=== PATIENT | female | born 1945 ===

== ENCOUNTER 2018-09-18 02:44 | Inpatient (IN) | payer MEDICARE ==
--- NOTE | 2018-09-18 02:55 | C.PDOC ---
History Of Present Illness Patient with PMHx of AFiv, taking xarelto, presents to the ED c/o fever, diffuse generalized aches, nausea since Sunday. Patient also c/o some chest pain yesterday, however reports no chest pain today. Patient denies fever, chills, h eadache, vomit, diarrhea, rash, recent travel, sick contacts. Time Seen by Provider: 09/18/18 02:54 History Per: Patient, Family History/Exam Limitations: no limitations Onset/Duration Of Symptoms: Days (4) Current Symptoms Are (Timing): Still Present Suicide/Self Injury Attempted (Context): None Modifying Factor(s): None Severity: Moderate Pain Scale Rating Of: 4 Associated Symptoms: denies: Depression, Suicidal Thoughts, Suicidal Plan Recent travel outside of the [place]: No Additional History Per: Patient Past Medical History Reviewed: Historical Data, Nursing Documentation, Vital Signs - Medical History PMH: Atrial Fibrillation, Cardia Arrhythmia, Diabetes, HTN Surgical History: Coronary Stent, Endoscopy Family History: States: Unknown Family Hx - Social History Hx Tobacco Use: No Hx Alcohol Use: No Hx Substance Use: No - Immunization History Hx Influenza Vaccination: Yes Hx Pneumococcal Vaccination: Yes Review Of Systems Constitutional: Positive for: Fever, Weakness, Malaise Eyes: Negative for: Vision Change ENT: Negative for: Nose Discharge, Nose Congestion Cardiovascular: Negative for: Chest Pain, Palpitations Respiratory: Negative for: Cough, Shortness of Breath Gastrointestinal: Positive for: Nausea. Negative for: Vomiting, Abdominal Pain Genitourinary: Positive for: Dysuria (?) Musculoskeletal: Negative for: Back Pain Skin: Negative for: Rash Neurological: Negative for: Weakness, Numbness, Headache Psych: Negative for: Anxiety Physical Exam - Physical Exam Appears: Non-toxic, In Acute Distress Skin: Warm, Dry Head: Normacephalic Eye(s): bilateral: Normal Inspection, Other (conjuctiva midly jaundiced) Oral Mucosa: Dry Neck: Supple Chest: Symmetrical Cardiovascular: Rhythm Irregular (irregularly irregular) Respiratory: No Rales, Rhonchi (scattered ), No Wheezing Gastrointestinal/Abdominal: Soft, No Tenderness, No Guarding, No Rebound Back: No CVA Tenderness Extremity: No Tenderness Extremity: Bilateral: Atraumatic, Normal Color And Temperature, Normal ROM Pulses: Left Dorsalis Pedis: Normal, Right Dorsalis Pedis: Normal Neurological/Psych: Oriented x3, Normal Speech, Normal Cognition Gait: Unable To Assess ED Course And Treatment - Laboratory Results Result Diagrams: 09/18/18 03:35 09/18/18 03:35 ECG: Interpreted By Me, Viewed By Me ECG Rhythm: Atrial Fibrillation (116), ST/T Changes (inf lat ischemic changes) O2 Sat by Pulse Oximetry: 91 Pulse Ox Interpretation: Abnormal - Radiology CXR: Interpreted by Me, Viewed By Me CXR Interpretation: No: Infiltrates, Fracture, Pnemothorax Progress Note: Plan: - Labs. - VBG. - CXR. - IV fluids. - Tylenol 975 mg PO. - Zofran 4 mg IVP. - Blood culture. - Urine culture. - UA. 4:38 AM pt feels better Disposition Discussed With : Kye Umana Comment: accepted the pt on his service and took over the care at 4:35 AM Doctor Will See Patient In The: Hospital Counseled Patient/Family Regarding: Studies Performed, Diagnosis - Disposition Disposition: HOSPITALIZED Disposition Time: 02:55 Condition: GUARDED - POA Present On Arrival: Poor Glycemic Control - Clinical Impression Clinical Impression: Fever, Urinary tract infection, Chest pain, A-fib - Scribe Statement The provider has reviewed the documentation as recorded by the Scribe Damion Nicholas All medical record entries made by the Scribe were at my direction and personally dictated by me. I have reviewed the chart and agree that the record accurately reflects my personal performance of the history, physical exam, medical decision making, and the department course for this patient. I have also personally directed, reviewed, and agree with the discharge instructions and disposition. Decision To Admit - Pt Status Changed To: Hospital Disposition Of: Inpatient - Admit Certification Admit to Inpatient:: After my assessment, the patient will require hospitalization for at least two midnights. This is because of the severity of symptoms shown, intensity of services needed, and/or the medical risk in this patient being treated as an outpatient. - InPatient: Physician Admission Certification: I certify that this patient requires 2 or more midnights of care for the following reason:: After my assessment, the patient will require hospitalization for at least two midnights. This is because of the severity of symptoms shown, intensity of services needed, and/or the medical risk in this patient being treated as an outpatient. - . Bed Request Type: Telemetry Admitting Physician: Kye Umana Patient Diagnosis: Fever, Urinary tract infection, Chest pain
[2018-09-18] MEDS ORDERED: Sodium Chloride 0.9% 1,000 ML IV ONE ×2 (03:16→04:08)
[2018-09-18 03:34] LABS: VENOUS BLOOD GAS BASE EXCESS -2.9 mmol/L (0.0-2.0); VENOUS BLOOD GAS PCO2 38 mmHg (40-60); VENOUS BLOOD GAS PO2 22 mm/Hg (30-55); VENOUS BLOOD PH 7.37 (7.32-7.43)
[2018-09-18] MEDS ORDERED: Sodium Chloride 0.9% 1,000 ML ONE (03:34)
[2018-09-18] MEDS ORDERED: Piperacillin/Tazobact 3.375 gm 100 ML IVPB STA (03:35)
[2018-09-18 03:38] LABS: BASO % 0.2 % (0.0-2.0); EOS % 0.2 % (0.0-4.0); HEMOGLOBIN 13.5 g/dL (11.0-16.0); LYMPH # 0.2 K/uL (1.0-4.3); MEAN CELL VOLUME 92.3 fL (81.0-99.0); MEAN CORPUSCULAR HEMOGLOBIN 32.2 pg (27.0-31.0); MEAN CORPUSCULAR HGB CONC 34.9 g/dL (33.0-37.0); MEAN PLATELET VOLUME 8.9 fL (7.2-11.7); MONO # 0.1 K/uL (0.0-0.8); MONO % 0.6 % (0.0-10.0); NEUT # 10.5 K/uL (1.8-7.0); PLATELET COUNT 217 K/uL (130-400); RED CELL DISTRIBUTION WIDTH 13.4 % (11.5-14.5); WHITE BLOOD COUNT 10.8 K/uL (4.8-10.8)
[2018-09-18 03:46] LABS: INR 1.4
[2018-09-18 03:59] LABS: ALB/GLOB RATIO 1.5 (1.0-2.1); ALT/SGPT 30 U/L (9-52); AST/SGOT 38 U/L (14-36); BLOOD UREA NITROGEN 20 mg/dL (7-17); CALCIUM 9.3 mg/dl (8.6-10.4); GFR NON-AFRICAN AMERICAN > 60
[2018-09-18] MEDS ORDERED: Piperacillin/Tazobact 3.375 gm 100 ML IVPB ONE (04:07)
[2018-09-18 04:16] LABS: BANDS 7 % (0-2); LYMPHOCYTE 2 % (20-40); NEUTROPHIL 88 % (50-75); PLATELET ESTIMATE NORMAL (NORMAL); REACTIVE LYMPHOCYTES 3 % (0-0); TOTAL CELLS COUNTED 100
[2018-09-18] MEDS ORDERED: Sodium Chloride 0.9% 1,000 ML IV SCH (05:15)
[2018-09-18] MEDS: (Novolin R) Insulin Human Regular 100 units/ml vial SC SCH ×4 (07:42→21:33)
--- NOTE | 2018-09-18 09:09 | RAD ---
Date of service: 09/18/2018 HISTORY: Sepsis Patient COMPARISON: No prior. TECHNIQUE: 1 view obtained. FINDINGS: LUNGS: No active pulmonary disease. PLEURA: No significant pleural effusion identified, no pneumothorax apparent. CARDIOVASCULAR: No aortic atherosclerotic calcification present. Normal cardiac size. No pulmonary vascular congestion. OSSEOUS STRUCTURES: No significant abnormalities. VISUALIZED UPPER ABDOMEN: Normal. OTHER FINDINGS: None. IMPRESSION: No acute cardiopulmonary disease appreciated.
[2018-09-18] MEDS: Magnesium Sulfate 1 gm in D5W 1 GM/100 ML BAG IVPB SCH ×4 (09:39→14:35)
[2018-09-18] MEDS: Metoprolol Succinate 50 mg XL Tab PO SCH (09:40)
--- NOTE | 2018-09-18 11:22 | US ---
Abdominal ultrasound HISTORY: Abdominal pain. COMPARISON: CT scan dated 05/21/2014 TECHNIQUE: Real-time sonography was performed through the abdomen. FINDINGS: LIVER: 10.8 centimeters in length. Normal echogenicity. GALLBLADDER: No calculi or sludge. Normal wall thickness of 2.4 millimeters. No gross wall edema. Negative sonographic Irwin's sign. Common bile duct measures 4.8 millimeters, within normal limits. Limited visualization of the pancreas. Spleen measures 9.9 centimeters in length, within normal limits. Visualized aorta and IVC are preserved. Atherosclerotic calcification and plaque seen within the aorta. RIGHT KIDNEY: 10.6 x 4.0 x 4.7 centimeters. No calculi or hydronephrosis. LEFT KIDNEY: 10.0 x 5.5 x 5.3 centimeters. Upper to midpole hypoechoic left renal lesion with some questionable increased peripheral echogenicity and or internal echoes in the cyst/cystic lesion measuring 6.9 x 4.7 x 5.6 centimeters. Interval follow-up and/or correlation with multiphasic contrast enhanced CT or may be helpful if clinically indicated to better evaluate this cystic lesion. No gross calculi or hydronephrosis. IMPRESSION: Upper to midpole hypoechoic left renal lesion with some questionable increased peripheral echogenicity and or internal echoes in the cyst/cystic lesion measuring 6.9 x 4.7 x 5.6 centimeters. Interval follow-up and/or correlation with multiphasic contrast enhanced CT or MRI may be helpful if clinically indicated to better evaluate this cystic lesion. Limited visualization of the pancreas.
[2018-09-18] MEDS ORDERED: Digoxin 500 mcg/2ml (0.5 mg/2ml) Inj IVP ONE (12:00)
[2018-09-18 14:29] LABS: SQUAMOUS EPITHIAL < 1 /hpf (0-5); URINE BILIRUBIN NEGATIVE (NEGATIVE); URINE BLOOD NEGATIVE (NEGATIVE); URINE CLARITY Clear (Clear); URINE COLOR Yellow (YELLOW); URINE GLUCOSE (UA) NORMAL (Normal); URINE LEUKOCYTE ESTERASE NEG Leu/uL (Negative); URINE PROTEIN NEGATIVE (NEGATIVE); URINE UROBILINOGEN NORMAL mg/dL (0.2-1.0)
--- NOTE | 2018-09-18 17:27 | CP.PCM.CON ---
History of Present Illness - History of Present Illness History of Present Illness: INFECTIOUS DISEASE CONSULTATION EDINSON SALAZAR MD, FACP 09/18/2018 6T [id number] CHART REVIEWED PT EXAMINED\ CASE DISCUSSED WITH STAFF 73 YR OLD FEMALE ADMITTED WITH TEMPS AND NOT FEELING WELL. WAS RECENTLY RX FOR A UTI(?) AN ID CONSULTATION WAS REQUESTED 2ND TEMPS AND SOURCE TO BE ELUCIDATED. History Of Present Illness Patient with PMHx of AFiv, taking xarelto, presents to the ED c/o fever, diffuse generalized aches, nausea since Sunday. Patient also c/o some chest pain yesterday, however reports no chest pain today. Patient denies fever, chills, headache, vomit, diarrhea, rash, recent travel, sick contacts. History Per: Patient, Family History/Exam Limitations: no limitations Onset/Duration Of Symptoms: Days (4) Current Symptoms Are (Timing): Still Present Suicide/Self Injury Attempted (Context): None Modifying Factor(s): None Severity: Moderate Pain Scale Rating Of: 4 Associated Symptoms: denies: Depression, Suicidal Thoughts, Suicidal Plan Recent travel outside of the [place]: No Additional History Per: Patient Past Medical History Reviewed: Historical Data, Nursing Documentation, Vital Signs - Medical History PMH: Atrial Fibrillation, Cardia Arrhythmia, Diabetes, HTN Surgical History: Coronary Stent, Endoscopy Family History: States: Unknown Family Hx - Social History Hx Tobacco Use: No Hx Alcohol Use: No Hx Substance Use: No - Immunization History Hx Influenza Vaccination: Yes Hx Pneumococcal Vaccination: Yes Review Of Systems Constitutional: Positive for: Fever, Weakness, Malaise Eyes: Negative for: Vision Change ENT: Negative for: Nose Discharge, Nose Congestion Cardiovascular: Negative for: Chest Pain, Palpitations Respiratory: Negative for: Cough, Shortness of Breath Gastrointestinal: Positive for: Nausea. Negative for: Vomiting, Abdominal Pain Genitourinary: Positive for: Dysuria (?) Musculoskeletal: Negative for: Back Pain Skin: Negative for: Rash Neurological: Negative for: Weakness, Numbness, Headache Psych: Negative for: Anxiety Physical Exam - Physical Exam Appears: Non-toxic, In Acute Distress Skin: Warm, Dry Head: Normacephalic Eye(s): bilateral: Normal Inspection, Other (conjuctiva midly jaundiced) Oral Mucosa: Dry Neck: Supple Chest: Symmetrical Cardiovascular: Rhythm Irregular (irregularly irregular) Respiratory: No Rales, Rhonchi (scattered ), No Wheezing Gastrointestinal/Abdominal: Soft, No Tenderness, No Guarding, No Rebound Back: No CVA Tenderness Extremity: No Tenderness Extremity: Bilateral: Atraumatic, Normal Color And Temperature, Normal ROM Pulses: Left Dorsalis Pedis: Normal, Right Dorsalis Pedis: Normal Neurological/Psych: Oriented x3, Normal Speech, Normal Cognition Gait: Unable To Assess ED Course And Treatment - ECG Rhythm: Atrial Fibrillation (116), ST/T Changes (inf lat ischemic changes) O2 Sat by Pulse Oximetry: 91 Pulse Ox Interpretation: Abnormal - Radiology CXR: Interpreted by Me, Viewed By Me CXR Interpretation: No: Infiltrates, Fracture, Pnemothorax Progress Note: Plan: - Labs. - VBG. - CXR. - IV fluids. - Tylenol 975 mg PO. - Zofran 4 mg IVP. - Blood culture. - Urine culture. - UA. 4:38 AM pt feels better Disposition Discussed With DrFarhan: Kye CHISHOLM Present On Arrival: Poor Glycemic Control - Clinical Impression Clinical Impression: Fever, Urinary tract infection, Chest pain, A-fib Past Patient History - Infectious Disease Hx of Infectious Diseases: None - Past Social History Smoking Status: Never Smoked - CARDIAC Hx Cardiac Disorders: Yes Hx Hypertension: Yes - PULMONARY Hx Respiratory Disorders: No - NEUROLOGICAL Hx Neurological Disorder: No - HEENT Hx HEENT Problems: No - RENAL Hx Chronic Kidney Disease: No - ENDOCRINE/METABOLIC Hx Diabetes Mellitus Type 2: Yes - HEMATOLOGICAL/ONCOLOGICAL Hx Blood Disorders: No - INTEGUMENTARY Hx Dermatological Problems: No - MUSCULOSKELETAL/RHEUMATOLOGICAL Hx Musculoskeletal Disorders: No Hx Falls: No - GASTROINTESTINAL Hx Gastrointestinal Disorders: No - GENITOURINARY/GYNECOLOGICAL Hx Genitourinary Disorders: No - PSYCHIATRIC Hx Psychophysiologic Disorder: No Hx Substance Use: No - SURGICAL HISTORY Hx Surgeries: Yes Hx Coronary Stent: Yes - ANESTHESIA Hx Anesthesia: Yes Hx Anesthesia Reactions: No Hx Malignant Hyperthermia: No Has any member of the family had a problem w/ anesthesia?: No Meds Allergies/Adverse Reactions: Allergies Allergy/AdvReac Type Severity Reaction Status Date / Time No Known Allergies Allergy Verified 09/18/18 03:00 - Medications Medications: Current Medications Acetaminophen (Tylenol 325mg Tab) 975 mg PO ONCE PRN PRN Reason: Fever >100.4 F Last Admin: 09/18/18 03:36 Dose: 975 mg Acetaminophen (Tylenol 325mg Tab) 650 mg PO Q6 PRN PRN Reason: Pain, severe (8-10) Digoxin (Lanoxin) 0.25 mg IVP DAILY [facility] Stop: 09/22/18 10:01 Sodium Chloride (Sodium Chloride 0.9%) 1,000 mls @ 50 mls/hr IV .Q20H [facility] Piperacillin Sod/Tazobactam (Sod 3.375 gm/ Sodium Chloride) 100 mls @ 200 mls/hr IVPB Q8H [facility]; Protocol Insulin Human Regular (Novolin R) 0 unit SC ACHS [facility]; Protocol Last Admin: 09/18/18 12:35 Dose: Not Given Metformin HCl (Glucophage) 500 mg PO DAILY [facility] Last Admin: 09/18/18 09:40 Dose: 500 mg Metoprolol Succinate (Toprol Xl) 50 mg PO DAILY [facility] Last Admin: 09/18/18 09:40 Dose: 50 mg Pneumococcal Polyvalent Vaccine (Pneumovax 23 Vaccine) 0.5 ml IM .ONCE ONE Stop: 09/20/18 10:01 Rivaroxaban (Xarelto) 15 mg PO DAILY [facility] Last Admin: 09/18/18 11:30 Dose: 15 mg Results - Vital Signs Recent Vital Signs: Last Vital Signs Temp 97.9 F 09/18/18 08:31 Pulse 98 H 09/18/18 15:07 Resp 18 09/18/18 08:31 BP 90/60 L 09/18/18 08:31 Pulse Ox 95 09/18/18 08:31 - Labs Result Diagrams: 09/18/18 03:35 09/18/18 03:35 Labs: Laboratory Results - last 24 hr 09/18/18 09/18/18 09/18/18 03:25 03:35 03:35 WBC 10.8 RBC 4.20 Hgb 13.5 Hct 38.8 MCV 92.3 D MCH 32.2 H MCHC 34.9 RDW 13.4 Plt Count 217 MPV 8.9 Neut % (Auto) 97.0 H Lymph % (Auto) 2.0 L Crowley % (Auto) 0.6 Eos % (Auto) 0.2 Baso % (Auto) 0.2 Neut # (Auto) 10.5 H Lymph # (Auto) 0.2 L Crowley # (Auto) 0.1 Eos # (Auto) 0.0 Baso # (Auto) 0.0 Neutrophils % (Manual) 88 H Band Neutrophils % 7 H Lymphocytes % (Manual) 2 L Reactive Lymphs % 3 H Monocytes % (Manual) TEST NOT PERFORMED Platelet Estimate Normal RBC Morphology Normal PT 15.0 H INR 1.4 APTT 27 pO2 22 L VBG pH 7.37 VBG pCO2 38 L VBG HCO3 21.0 VBG Total CO2 23.2 VBG O2 Sat (Calc) 42.2 VBG Base Excess -2.9 L VBG Potassium 4.0 Sodium 135.0 Chloride 105.0 Glucose 167 H Lactate 2.2 H Potassium Carbon Dioxide Anion Gap BUN Creatinine Est GFR ( Amer) Est GFR (Non-Af Amer) POC Glucose (mg/dL) Random Glucose Lactic Acid Calcium Phosphorus Magnesium Total Bilirubin AST ALT Alkaline Phosphatase Troponin I Total Protein Albumin Globulin Albumin/Globulin Ratio Procalcitonin Venous Blood Potassium 4.0 Urine Color Urine Clarity Urine pH Ur Specific [place] Urine Protein Urine Glucose (UA) Urine Ketones Urine Blood Urine Nitrate Urine Bilirubin Urine Urobilinogen Ur Leukocyte Esterase Urine WBC (Auto) Urine RBC (Auto) Ur Squamous Epith Cells Influenza Typ A,B (EIA) Blood Type Antibody Screen 09/18/18 09/18/18 09/18/18 03:35 03:35 03:35 WBC RBC Hgb Hct MCV MCH MCHC RDW Plt Count MPV Neut % (Auto) Lymph % (Auto) Crowley % (Auto) Eos % (Auto) Baso % (Auto) Neut # (Auto) Lymph # (Auto) Crowley # (Auto) Eos # (Auto) Baso # (Auto) Neutrophils % (Manual) Band Neutrophils % Lymphocytes % (Manual) Reactive Lymphs % Monocytes % (Manual) Platelet Estimate RBC Morphology PT INR APTT pO2 VBG pH VBG pCO2 VBG HCO3 VBG Total CO2 VBG O2 Sat (Calc) VBG Base Excess VBG Potassium Sodium 134 Chloride 101 Glucose Lactate Potassium 4.3 Carbon Dioxide 24 Anion Gap 12 BUN 20 H Creatinine 0.7 Est GFR ( Amer) > 60 Est GFR (Non-Af Amer) > 60 POC Glucose (mg/dL) Random Glucose 169 H D Lactic Acid Calcium 9.3 Phosphorus 2.9 Magnesium 1.2 L Total Bilirubin 0.7 AST 38 H ALT 30 Alkaline Phosphatase 89 Troponin I < 0.0120 Total Protein 6.8 Albumin 4.0 Globulin 2.8 Albumin/Globulin Ratio 1.5 Procalcitonin 0.37 Venous Blood Potassium Urine Color Urine Clarity Urine pH Ur Specific [place] Urine Protein Urine Glucose (UA) Urine Ketones Urine Blood Urine Nitrate Urine Bilirubin Urine Urobilinogen Ur Leukocyte Esterase Urine WBC (Auto) Urine RBC (Auto) Ur Squamous Epith Cells Influenza Typ A,B (EIA) Blood Type O POSITIVE Antibody Screen Negative 09/18/18 09/18/18 09/18/18 05:52 11:20 14:12 WBC RBC Hgb Hct MCV MCH MCHC RDW Plt Count MPV Neut % (Auto) Lymph % (Auto) Crowley % (Auto) Eos % (Auto) Baso % (Auto) Neut # (Auto) Lymph # (Auto) Crowley # (Auto) Eos # (Auto) Baso # (Auto) Neutrophils % (Manual) Band Neutrophils % Lymphocytes % (Manual) Reactive Lymphs % Monocytes % (Manual) Platelet Estimate RBC Morphology PT INR APTT pO2 VBG pH VBG pCO2 VBG HCO3 VBG Total CO2 VBG O2 Sat (Calc) VBG Base Excess VBG Potassium Sodium Chloride Glucose Lactate Potassium Carbon Dioxide Anion Gap BUN Creatinine Est GFR ( Amer) Est GFR (Non-Af Amer) POC Glucose (mg/dL) 172 H Random Glucose Lactic Acid 1.9 Calcium Phosphorus Magnesium Total Bilirubin AST ALT Alkaline Phosphatase Troponin I Total Protein Albumin Globulin Albumin/Globulin Ratio Procalcitonin Venous Blood Potassium Urine Color Yellow Urine Clarity Clear Urine pH 5.0 Ur Specific [place] 1.015 Urine Protein Negative Urine Glucose (UA) Normal Urine Ketones 1+ H Urine Blood Negative Urine Nitrate Negative Urine Bilirubin Negative Urine Urobilinogen Normal Ur Leukocyte Esterase Neg Urine WBC (Auto) 1 Urine RBC (Auto) 1 Ur Squamous Epith Cells < 1 Influenza Typ A,B (EIA) Blood Type Antibody Screen 09/18/18 14:12 WBC RBC Hgb Hct MCV MCH MCHC RDW Plt Count MPV Neut % (Auto) Lymph % (Auto) Crow[place] % (Auto) Eos % (Auto) Baso % (Auto) Neut # (Auto) Lymph # (Auto) Crowley # (Auto) Eos # (Auto) Baso # (Auto) Neutrophils % (Manual) Band Neutrophils % Lymphocytes % (Manual) Reactive Lymphs % Monocytes % (Manual) Platelet Estimate RBC Morphology PT INR APTT pO2 VBG pH VBG pCO2 VBG HCO3 VBG Total CO2 VBG O2 Sat (Calc) VBG Base Excess VBG Potassium Sodium Chloride Glucose Lactate Potassium Carbon Dioxide Anion Gap BUN Creatinine Est GFR ( Amer) Est GFR (Non-Af Amer) POC Glucose (mg/dL) Random Glucose Lactic Acid Calcium Phosphorus Magnesium Total Bilirubin AST ALT Alkaline Phosphatase Troponin I Total Protein Albumin Globulin Albumin/Globulin Ratio Procalcitonin Venous Blood Potassium Urine Color Urine Clarity Urine pH Ur Specific [place] Urine Protein Urine Glucose (UA) Urine Ketones Urine Blood Urine Nitrate Urine Bilirubin Urine Urobilinogen Ur Leukocyte Esterase Urine WBC (Auto) Urine RBC (Auto) Ur Squamous Epith Cells Influenza Typ A,B (EIA) Negative for flu a/b Blood Type Antibody Screen
--- NOTE | 2018-09-18 17:40 | CP.PCM.CON ---
History of Present Illness - History of Present Illness History of Present Illness: pt is seen and examined, full consult is dictated #[id number] will plan for ct scan with iv contrast for better evaluation of cyst, r/o mass c/w iv abx a sper id f/u blood c/s, urine c/s Past Patient History - Infectious Disease Hx of Infectious Diseases: None - Past Social History Smoking Status: Never Smoked - CARDIAC Hx Cardiac Disorders: Yes Hx Hypertension: Yes - PULMONARY Hx Respiratory Disorders: No - NEUROLOGICAL Hx Neurological Disorder: No - HEENT Hx HEENT Problems: No - RENAL Hx Chronic Kidney Disease: No - ENDOCRINE/METABOLIC Hx Diabetes Mellitus Type 2: Yes - HEMATOLOGICAL/ONCOLOGICAL Hx Blood Disorders: No - INTEGUMENTARY Hx Dermatological Problems: No - MUSCULOSKELETAL/RHEUMATOLOGICAL Hx Musculoskeletal Disorders: No Hx Falls: No - GASTROINTESTINAL Hx Gastrointestinal Disorders: No - GENITOURINARY/GYNECOLOGICAL Hx Genitourinary Disorders: No - PSYCHIATRIC Hx Psychophysiologic Disorder: No Hx Substance Use: No - SURGICAL HISTORY Hx Surgeries: Yes Hx Coronary Stent: Yes - ANESTHESIA Hx Anesthesia: Yes Hx Anesthesia Reactions: No Hx Malignant Hyperthermia: No Has any member of the family had a problem w/ anesthesia?: No Meds Allergies/Adverse Reactions: Allergies Allergy/AdvReac Type Severity Reaction Status Date / Time No Known Allergies Allergy Verified 09/18/18 03:00 - Medications Medications: Current Medications Acetaminophen (Tylenol 325mg Tab) 975 mg PO ONCE PRN PRN Reason: Fever >100.4 F Last Admin: 09/18/18 03:36 Dose: 975 mg Acetaminophen (Tylenol 325mg Tab) 650 mg PO Q6 PRN PRN Reason: Pain, severe (8-10) Digoxin (Lanoxin) 0.25 mg IVP DAILY [facility] Stop: 09/22/18 10:01 Sodium Chloride (Sodium Chloride 0.9%) 1,000 mls @ 50 mls/hr IV .Q20H [facility] Piperacillin Sod/Tazobactam (Sod 3.375 gm/ Sodium Chloride) 100 mls @ 200 mls/hr IVPB Q8H [facility]; Protocol Insulin Human Regular (Novolin R) 0 unit SC ACHS [facility]; Protocol Last Admin: 09/18/18 12:35 Dose: Not Given Metformin HCl (Glucophage) 500 mg PO DAILY [facility] Last Admin: 09/18/18 09:40 Dose: 500 mg Metoprolol Succinate (Toprol Xl) 50 mg PO DAILY [facility] Last Admin: 09/18/18 09:40 Dose: 50 mg Pneumococcal Polyvalent Vaccine (Pneumovax 23 Vaccine) 0.5 ml IM .ONCE ONE Stop: 09/20/18 10:01 Rivaroxaban (Xarelto) 15 mg PO DAILY [facility] Last Admin: 09/18/18 11:30 Dose: 15 mg Results - Vital Signs Recent Vital Signs: Last Vital Signs Temp 97.9 F 09/18/18 08:31 Pulse 98 H 09/18/18 15:07 Resp 18 09/18/18 08:31 BP 90/60 L 09/18/18 08:31 Pulse Ox 95 09/18/18 08:31 - Labs Result Diagrams: 09/18/18 03:35 09/18/18 03:35 Labs: Laboratory Results - last 24 hr 09/18/18 09/18/18 09/18/18 03:25 03:35 03:35 WBC 10.8 RBC 4.20 Hgb 13.5 Hct 38.8 MCV 92.3 D MCH 32.2 H MCHC 34.9 RDW 13.4 Plt Count 217 MPV 8.9 Neut % (Auto) 97.0 H Lymph % (Auto) 2.0 L [place] % (Auto) 0.6 Eos % (Auto) 0.2 Baso % (Auto) 0.2 Neut # (Auto) 10.5 H Lymph # (Auto) 0.2 L [place] # (Auto) 0.1 Eos # (Auto) 0.0 Baso # (Auto) 0.0 Neutrophils % (Manual) 88 H Band Neutrophils % 7 H Lymphocytes % (Manual) 2 L Reactive Lymphs % 3 H Monocytes % (Manual) TEST NOT PERFORMED Platelet Estimate Normal RBC Morphology Normal PT 15.0 H INR 1.4 APTT 27 pO2 22 L VBG pH 7.37 VBG pCO2 38 L VBG HCO3 21.0 VBG Total CO2 23.2 VBG O2 Sat (Calc) 42.2 VBG Base Excess -2.9 L VBG Potassium 4.0 Sodium 135.0 Chloride 105.0 Glucose 167 H Lactate 2.2 H Potassium Carbon Dioxide Anion Gap BUN Creatinine Est GFR ( Amer) Est GFR (Non-Af Amer) POC Glucose (mg/dL) Random Glucose Lactic Acid Calcium Phosphorus Magnesium Total Bilirubin AST ALT Alkaline Phosphatase Troponin I Total Protein Albumin Globulin Albumin/Globulin Ratio Procalcitonin Venous Blood Potassium 4.0 Urine Color Urine Clarity Urine pH Ur Specific [place] Urine Protein Urine Glucose (UA) Urine Ketones Urine Blood Urine Nitrate Urine Bilirubin Urine Urobilinogen Ur Leukocyte Esterase Urine WBC (Auto) Urine RBC (Auto) Ur Squamous Epith Cells Influenza Typ A,B (EIA) Blood Type Antibody Screen 09/18/18 09/18/18 09/18/18 03:35 03:35 03:35 WBC RBC Hgb Hct MCV MCH MCHC RDW Plt Count MPV Neut % (Auto) Lymph % (Auto) [place] % (Auto) Eos % (Auto) Baso % (Auto) Neut # (Auto) Lymph # (Auto) [place] # (Auto) Eos # (Auto) Baso # (Auto) Neutrophils % (Manual) Band Neutrophils % Lymphocytes % (Manual) Reactive Lymphs % Monocytes % (Manual) Platelet Estimate RBC Morphology PT INR APTT pO2 VBG pH VBG pCO2 VBG HCO3 VBG Total CO2 VBG O2 Sat (Calc) VBG Base Excess VBG Potassium Sodium 134 Chloride 101 Glucose Lactate Potassium 4.3 Carbon Dioxide 24 Anion Gap 12 BUN 20 H Creatinine 0.7 Est GFR ( Amer) > 60 Est GFR (Non-Af Amer) > 60 POC Glucose (mg/dL) Random Glucose 169 H D Lactic Acid Calcium 9.3 Phosphorus 2.9 Magnesium 1.2 L Total Bilirubin 0.7 AST 38 H ALT 30 Alkaline Phosphatase 89 Troponin I < 0.0120 Total Protein 6.8 Albumin 4.0 Globulin 2.8 Albumin/Globulin Ratio 1.5 Procalcitonin 0.37 Venous Blood Potassium Urine Color Urine Clarity Urine pH Ur Specific [place] Urine Protein Urine Glucose (UA) Urine Ketones Urine Blood Urine Nitrate Urine Bilirubin Urine Urobilinogen Ur Leukocyte Esterase Urine WBC (Auto) Urine RBC (Auto) Ur Squamous Epith Cells Influenza Typ A,B (EIA) Blood Type O POSITIVE Antibody Screen Negative 09/18/18 09/18/18 09/18/18 05:52 11:20 14:12 WBC RBC Hgb Hct MCV MCH MCHC RDW Plt Count MPV Neut % (Auto) Lymph % (Auto) [place] % (Auto) Eos % (Auto) Baso % (Auto) Neut # (Auto) Lymph # (Auto) [place] # (Auto) Eos # (Auto) Baso # (Auto) Neutrophils % (Manual) Band Neutrophils % Lymphocytes % (Manual) Reactive Lymphs % Monocytes % (Manual) Platelet Estimate RBC Morphology PT INR APTT pO2 VBG pH VBG pCO2 VBG HCO3 VBG Total CO2 VBG O2 Sat (Calc) VBG Base Excess VBG Potassium Sodium Chloride Glucose Lactate Potassium Carbon Dioxide Anion Gap BUN Creatinine Est GFR ( Amer) Est GFR (Non-Af Amer) POC Glucose (mg/dL) 172 H Random Glucose Lactic Acid 1.9 Calcium Phosphorus Magnesium Total Bilirubin AST ALT Alkaline Phosphatase Troponin I Total Protein Albumin Globulin Albumin/Globulin Ratio Procalcitonin Venous Blood Potassium Urine Color Yellow Urine Clarity Clear Urine pH 5.0 Ur Specific [place] 1.015 Urine Protein Negative Urine Glucose (UA) Normal Urine Ketones 1+ H Urine Blood Negative Urine Nitrate Negative Urine Bilirubin Negative Urine Urobilinogen Normal Ur Leukocyte Esterase Neg Urine WBC (Auto) 1 Urine RBC (Auto) 1 Ur Squamous Epith Cells < 1 Influenza Typ A,B (EIA) Blood Type Antibody Screen 09/18/18 09/18/18 14:12 17:08 WBC RBC Hgb Hct MCV MCH MCHC RDW Plt Count MPV Neut % (Auto) Lymph % (Auto) [place] % (Auto) Eos % (Auto) Baso % (Auto) Neut # (Auto) Lymph # (Auto) [place] # (Auto) Eos # (Auto) Baso # (Auto) Neutrophils % (Manual) Band Neutrophils % Lymphocytes % (Manual) Reactive Lymphs % Monocytes % (Manual) Platelet Estimate RBC Morphology PT INR APTT pO2 VBG pH VBG pCO2 VBG HCO3 VBG Total CO2 VBG O2 Sat (Calc) VBG Base Excess VBG Potassium Sodium Chloride Glucose Lactate Potassium Carbon Dioxide Anion Gap BUN Creatinine Est GFR ( Amer) Est GFR (Non-Af Amer) POC Glucose (mg/dL) 172 H Random Glucose Lactic Acid Calcium Phosphorus Magnesium Total Bilirubin AST ALT Alkaline Phosphatase Troponin I Total Protein Albumin Globulin Albumin/Globulin Ratio Procalcitonin Venous Blood Potassium Urine Color Urine Clarity Urine pH Ur Specific [place] Urine Protein Urine Glucose (UA) Urine Ketones Urine Blood Urine Nitrate Urine Bilirubin Urine Urobilinogen Ur Leukocyte Esterase Urine WBC (Auto) Urine RBC (Auto) Ur Squamous Epith Cells Influenza Typ A,B (EIA) Negative for flu a/b Blood Type Antibody Screen
[2018-09-18] MEDS: Piperacillin/Tazobact 3.375 GM in Sodium Chloride 100 ML IVPB SCH (17:49)
[2018-09-18] MEDS: Sodium Chloride 0.9% 1,000 ML IV SCH (17:50)
--- NOTE | 2018-09-18 23:20 | HP ---
HISTORY OF PRESENT ILLNESS: A 73-year-old female was brought in with fever, abdominal pain and not feeling well for the last two days. She was seen in the ER. Findings were discussed with the ER physician on the phone and subsequently admitted. Possibility of sepsis was considered. Neutrophils were high and bands were noted. Possible UTI. The patient has a longstanding history of hypertension, chronic atrial fibrillation permanent. MEDICATIONS: At home, she is on digoxin 0.25 mg on Sunday, Sunday and Sunday. She is on metoprolol 100 mg once a day, hydrochlorothiazide 12.5 mg once a day, metformin 500 mg once a day, Crestor 5 mg p.o. once a day, Xarelto 15 mg p.o. once a day, Boniva 150 mg once a month. PAST MEDICAL HISTORY: Being under care of Dr. Paris for diabetes in the past. PAST SURGICAL HISTORY: No major surgeries. PERSONAL HISTORY: Does not smoke, does not drink. She is , lives with her . ALLERGIES: DENIED. REVIEW OF SYSTEMS: CONSTITUTIONAL: Generalized weakness for past few days. Fever for two days prior to admission. EYES: Positive for wearing glasses. Dr. Corral is her eye physician. EARS: No hearing loss. NECK: No swollen glands. No sore throat. PULMONARY: Denies any cough, wheezing or hemoptysis. CARDIAC: No chest pain. There is occasional shortness of breath, but no PND. No leg cramps. No angina. No documented ME. Chronic atrial fibrillation. Echocardiogram done in the past had shown normal LV systolic function, mild LV diastolic dysfunction, mild to moderate MR. GI: Poor appetite for the past two days. Vague abdominal pain. No hematemesis. No melena. She has been seen by a intake clerk and had a colonoscopy and EGD done in 2015 in [place]. NEUROLOGIC: Negative for headaches, dizziness, TIAs, or CVAs. MUSCULOSKELETAL: Knee pain. : Frequency of urination is noted. No hematuria. History of UTI in 07/2018, was treated with the Cipro. PSYCH: Negative for depression. SKIN: No rash. EXTREMITIES: Positive for varicose veins but no edema. PHYSICAL EXAMINATION: GENERAL: An elderly female who was conscious, alert, but in no acute distress. VITAL SIGNS: She is 5 feet 2 inches. Weighs about 105 pounds. Her blood pressure is 140/70, heart rate of 100 irregular, telemetry shows atrial fibrillation, respiratory rate of 14, temperature of 98. HEENT: Head: Normocephalic. Eyes: No pallor, no icterus. NECK: Supple. No enlarged glands. LUNGS: Clear to auscultation bilaterally. HEART: PMI is normal. S1 and S2, irregular. No gallops. Soft early systolic murmur in mitral area grade 1-2/6. ABDOMEN: Soft, nontender. EXTREMITIES: No cyanosis, clubbing, or edema. Distal pulses are intact. Varicose vein. SKIN: Normal. LABORATORY DATA: CBC: White count is 10.1. Chest x-ray is negative. Abdominal ultrasound shows questionable lesion in the right kidney. ASSESSMENT: A 73-year-old female with a history of chronic atrial fibrillation, hypertension, diabetes, has presented with possible sepsis. PLAN: Plan at this point is to get culture. ID consultation is requested with Dr. Morse. We will obtain nephrology consultation for evaluation of the questionable renal mass and possible UTI. Kye Umana MD
[2018-09-19] MEDS ORDERED: Meropenem 1 GM in Sodium Chloride 0.9% 100 ML IVPB SCH (00:30)
[2018-09-19] MEDS: Meropenem 1 GM in Sodium Chloride 0.9% 100 ML IVPB SCH ×2 (02:17→09:53)
--- NOTE | 2018-09-19 05:15 | CON ---
DATE: 09/18/2018 RENAL CONSULTATION LOCATION: The patient is located in room 662, bed B. REQUESTED BY: Kye Umana MD REASON FOR CONSULTATION: For evaluation of abnormal ultrasound report and also for possible sepsis, urosepsis. HISTORY OF PRESENT ILLNESS: Mrs. Castillo is a 73-year-old elderly very pleasant female with past medical history significant for hypertension for few years of diabetes for about 1-year cardiac arrhythmias and coronary artery disease, history of stent placement and endoscopy in the past who was recently treated for UTI about two to three weeks ago by PMD of Dr. Kye Umana who was presented with the chief complaints of feeling cold and chills since Sunday and last night she felt very weak and tired and febrile. The patient's family decided to bring her to the hospital. The patient has a temperature more than 102. The patient also complains of back pain. Denies any headache or dizziness. Denies any chest pain or palpitations. Denies any vomiting. The patient does complain of nausea. PAST MEDICAL HISTORY: Significant for hypertension for few years, diabetes for one year, cardiac arrhythmias, coronary artery disease, status post stent. PAST SURGICAL HISTORY: Status post stent placement and endoscopy. ALLERGIES: NO KNOWN DRUG ALLERGIES. SOCIAL HISTORY: Denies any smoking, alcohol or drugs. PERSONAL HISTORY: She is and she has four children, very supportive . FAMILY HISTORY: Not significant. CURRENT MEDICATIONS: Include as follows: Metformin 500 mg p.o. daily, digoxin 0.25 mg IV daily, Novolin R per sliding scale, Zosyn 3.375 g IV every 8 hours, pneumococcal vaccine, metoprolol 50 mg p.o. daily, Tylenol and Xarelto 15 mg p.o. daily. REVIEW OF SYSTEMS: Significant for chills and cold, weakness, fever and back pain. All other review of systems are reviewed and are negative. PHYSICAL EXAMINATION: VITAL SIGNS: As follows. Her blood pressure this evening 96/54, pulse 96, respiration 20, temperature 98.7, saturation 96%. Height 5 feet and weight is 105 pounds. T max is 102.4. GENERAL: Mrs. Castillo is a 73-year-old elderly, very pleasant female, moderately built, moderately nourished, not in acute distress. HEENT: Pupils are normal and reactive to light and accommodation. Conjunctivae pink. Sclerae anicteric. Tongue is moist and trachea is midline. LUNGS: Symmetric on both sides. Bilateral breath sounds present. Clear to auscultation. CARDIOVASCULAR SYSTEM: [place] at the fifth intercostal space, midclavicular line. S1 and S2 audible. No murmur or gallop. ABDOMEN: Normal in appearance. Soft, tympanitic. No guarding. No rigidity. No hepatosplenomegaly. CENTRAL NERVOUS SYSTEM: The patient is alert, awake, oriented x3. Nonfocal neuro examination. Cranial nerves II through XII grossly intact. Sensory and motor system is within normal limits. EXTREMITIES: No cyanosis, no clubbing, no edema. LABORATORY DATA: Include as follows: As of 09/18/2018, WBC 10.8, hemoglobin 13.5, hematocrit 38.8, platelets 217. PT 15 and PTT 27. VBG: The pH of 7.37, pO2 of 22, pCO2 of 38, bicarb 21, saturation is 42% . Sodium 134, potassium 4.3, chloride 101, CO2 of 24, BUN 20, creatinine 0.7, glucose 169, calcium 9.3, phosphorus 2.9, magnesium 1.2. Total bili 0.7, AST 38, ALT 30, alkaline phosphatase 89, troponin 0.0121, total protein 6, albumin is 4. Influenza A and B antibodies are negative. Urinalysis: Yellow, clear, pH of 5, specific gravity of 1.015, protein negative, glucose negative, ketones 1+, blood negative, nitrites negative, urobilinogen normal, leukocyte esterase negative, wbc of 1, and rbc of 1. Lactic acid level is 1.9. Accu-Cheks: 169, 172, and 172. Reports of chest x-ray as of 09/18/2018: No acute cardiopulmonary disease appreciated. Ultrasound of the abdomen as of 09/18/2018: Right kidney 10.6 x 4 x 4.7 cm, no calculi or hydronephrosis. Left kidney 10 x 5.5 x 5.3 cm, [id number] pole hypoechoic left renal lesion with some questionable increased peripheral echogenicity and/or internal echoes in cyst or cystic lesion measuring 6.9 x 4.7 x 5.6 cm. Interval followup and/or correlation with multiphasic contrast enhanced CT scan or may be health for life clinically indicated for to better evaluate the cyst lesion. No gross calculi or hydronephrosis. ASSESSMENT: In summary, Mrs. Castillo is a 73-year-old elderly female with a history of hypertension, diabetes, cardiac arrhythmias, coronary artery disease, status post stent, status post treatment for urinary tract infection about two to three weeks ago who was admitted with weakness and chills and rigors, tired and fever of 102.4 on admission with slightly elevated white blood cell count. 1. Fever, rule out sepsis. Source is not clear. Rule out viral syndrome. 2. Large left renal cyst with internal echoes, rule out any mass or cystic growth. 3. Hypertension. 4. Diabetes. PLAN: Continue IV fluids normal saline and we will increase to 70 mL per hour and follow up blood cultures and urine cultures. Continue IV antibiotics as per ID recommendations. We will consider CT scan with contrast when blood pressure is stable. We will follow with you. Thank you for allowing me to participate in your patient's care. Yenny Baptiste MD
[2018-09-19] MEDS: (Novolin R) Insulin Human Regular 100 units/ml vial SC SCH ×4 (07:55→21:42)
[2018-09-19 08:37] LABS: BASO % 0.3 % (0.0-2.0); EOS # 0.3 K/uL (0.0-0.7); EOS % 2.8 % (0.0-4.0); HEMOGLOBIN 11.8 g/dL (11.0-16.0); LYMPH # 1.1 K/uL (1.0-4.3); LYMPH % 9.5 % (20.0-40.0); MEAN CELL VOLUME 92.2 fL (81.0-99.0); MEAN CORPUSCULAR HGB CONC 33.6 g/dL (33.0-37.0); MEAN PLATELET VOLUME 9.1 fL (7.2-11.7); MONO # 0.3 K/uL (0.0-0.8); MONO % 2.5 % (0.0-10.0); NEUT % 84.9 % (50.0-75.0); NRBC % 0.1 % (0.0-2.0); PLATELET COUNT 207 K/uL (130-400); RBC 3.82 Mil/uL (3.80-5.20); RED CELL DISTRIBUTION WIDTH 13.6 % (11.5-14.5); WHITE BLOOD COUNT 11.8 K/uL (4.8-10.8)
[2018-09-19 08:43] LABS: ALB/GLOB RATIO 1.2 (1.0-2.1); ALBUMIN 2.7 g/dL (3.5-5.0); ALT/SGPT 23 U/L (9-52); AST/SGOT 25 U/L (14-36); BLOOD UREA NITROGEN 13 mg/dL (7-17); CALCIUM 7.7 mg/dl (8.6-10.4); GFR NON-AFRICAN AMERICAN > 60
[2018-09-19] MEDS ORDERED: Digoxin 500 mcg/2ml (0.5 mg/2ml) Inj IVP SCH (10:00)
[2018-09-19 10:25] LABS: BANDS 1 % (0-2); EOSINOPHIL 2 % (0-4); LYMPHOCYTE 6 % (20-40); MONOCYTE 3 % (0-10); NEUTROPHIL 88 % (50-75); PLATELET ESTIMATE NORMAL (NORMAL); TOTAL CELLS COUNTED 100
--- NOTE | 2018-09-19 11:48 | CP.PCM.PN ---
Subjective - Date & Time of Evaluation Date of Evaluation: 09/19/18 Time of Evaluation: 11:48 - Subjective Subjective: pt is seen and examined, follow up consult is dictated #[id number] will request ct scan Objective - Vital Signs/Intake and Output Vital Signs (last 24 hours): Temp Pulse Resp BP Pulse Ox 97.3 F L 80 20 113/67 97 09/19/18 07:20 09/19/18 07:20 09/19/18 07:20 09/19/18 07:51 09/19/18 07:20 Intake and Output: 09/19/18 09/19/18 06:59 18:59 Intake Total 640 Balance 640 - Medications Medications: Current Medications Acetaminophen (Tylenol 325mg Tab) 975 mg PO ONCE PRN PRN Reason: Fever >100.4 F Last Admin: 09/18/18 03:36 Dose: 975 mg Acetaminophen (Tylenol 325mg Tab) 650 mg PO Q6 PRN PRN Reason: Pain, severe (8-10) Last Admin: 09/19/18 00:50 Dose: 650 mg Digoxin (Lanoxin) 0.25 mg IVP DAILY [facility] Stop: 09/22/18 10:01 Last Admin: 09/19/18 09:53 Dose: 0.25 mg Piperacillin Sod/Tazobactam (Sod 3.375 gm/ Sodium Chloride) 100 mls @ 200 mls/hr IVPB Q8H [facility]; Protocol Last Admin: 09/18/18 17:49 Dose: 200 mls/hr Sodium Chloride (Sodium Chloride 0.9%) 1,000 mls @ 80 mls/hr IV .[id number] [facility] Last Admin: 09/18/18 17:50 Dose: 80 mls/hr Meropenem 1 gm/ Sodium (Chloride) 100 mls @ 100 mls/hr IVPB Q8H [facility]; Protocol Last Admin: 09/19/18 09:53 Dose: 100 mls/hr Insulin Human Regular (Novolin R) 0 unit SC ACHS [facility]; Protocol Last Admin: 09/19/18 07:55 Dose: Not Given Metformin HCl (Glucophage) 500 mg PO DAILY [facility] Last Admin: 09/19/18 09:50 Dose: 500 mg Metoprolol Succinate (Toprol Xl) 50 mg PO DAILY [facility] Last Admin: 09/18/18 09:40 Dose: 50 mg Pneumococcal Polyvalent Vaccine (Pneumovax 23 Vaccine) 0.5 ml IM .ONCE ONE Stop: 09/20/18 10:01 Rivaroxaban (Xarelto) 15 mg PO DAILY [facility] Last Admin: 09/19/18 09:50 Dose: 15 mg - Labs Labs: 09/19/18 08:21 09/19/18 08:21 PT 15.0 SECONDS (9.7-12.2) H 09/18/18 03:35 INR 1.4 09/18/18 03:35 APTT 27 SECONDS (21-34) 09/18/18 03:35
--- NOTE | 2018-09-19 12:36 | CARD ---
APPROVED REPORT Date of service: 09/18/2018 EKG Measurement Heart [id number] <Conclusion> Atrial fibrillation with rapid ventricular response ST & T wave abnormality, consider inferior ischemia ST & T wave abnormality, consider anterolateral ischemia Abnormal ECG
--- NOTE | 2018-09-19 12:37 | CP.PCM.PN ---
Subjective - Date & Time of Evaluation Date of Evaluation: 09/19/18 Time of Evaluation: 12:36 - Subjective Subjective: rash all over.nephro & id f/u noted. Objective - Vital Signs/Intake and Output Vital Signs (last 24 hours): Temp Pulse Resp BP Pulse Ox 97.3 F L 80 20 113/67 97 09/19/18 07:20 09/19/18 07:20 09/19/18 07:20 09/19/18 07:51 09/19/18 07:20 Intake and Output: 09/19/18 09/19/18 06:59 18:59 Intake Total 640 Balance 640 - Medications Medications: Current Medications Acetaminophen (Tylenol 325mg Tab) 975 mg PO ONCE PRN PRN Reason: Fever >100.4 F Last Admin: 09/18/18 03:36 Dose: 975 mg Acetaminophen (Tylenol 325mg Tab) 650 mg PO Q6 PRN PRN Reason: Pain, severe (8-10) Last Admin: 09/19/18 00:50 Dose: 650 mg Digoxin (Lanoxin) 0.25 mg IVP DAILY [facility] Stop: 09/22/18 10:01 Last Admin: 09/19/18 09:53 Dose: 0.25 mg Piperacillin Sod/Tazobactam (Sod 3.375 gm/ Sodium Chloride) 100 mls @ 200 mls/hr IVPB Q8H [facility]; Protocol Last Admin: 09/18/18 17:49 Dose: 200 mls/hr Sodium Chloride (Sodium Chloride 0.9%) 1,000 mls @ 80 mls/hr IV .[id number] [facility] Last Admin: 09/18/18 17:50 Dose: 80 mls/hr Meropenem 1 gm/ Sodium (Chloride) 100 mls @ 100 mls/hr IVPB Q8H [facility]; Protocol Last Admin: 09/19/18 09:53 Dose: 100 mls/hr Insulin Human Regular (Novolin R) 0 unit SC ACHS [facility]; Protocol Last Admin: 09/19/18 07:55 Dose: Not Given Metformin HCl (Glucophage) 500 mg PO DAILY [facility] Last Admin: 09/19/18 09:50 Dose: 500 mg Metoprolol Succinate (Toprol Xl) 50 mg PO DAILY [facility] Last Admin: 09/18/18 09:40 Dose: 50 mg Pneumococcal Polyvalent Vaccine (Pneumovax 23 Vaccine) 0.5 ml IM .ONCE ONE Stop: 09/20/18 10:01 Rivaroxaban (Xarelto) 15 mg PO DAILY [facility] Last Admin: 09/19/18 09:50 Dose: 15 mg - Labs Labs: 09/19/18 08:21 09/19/18 08:21 PT 15.0 SECONDS (9.7-12.2) H 09/18/18 03:35 INR 1.4 09/18/18 03:35 APTT 27 SECONDS (21-34) 09/18/18 03:35 - Constitutional Appears: No Acute Distress - Eye Exam Eye Exam: Normal appearance - Neck Exam Neck Exam: Normal Inspection - Respiratory Exam Respiratory Exam: Clear to Ausculation Bilateral - Cardiovascular Exam Cardiovascular Exam: Irregular Rhythm, Murmur - GI/Abdominal Exam GI & Abdominal Exam: Soft - Extremities Exam Extremities Exam: absent: Pedal Edema - Neurological Exam Neurological Exam: Alert, Oriented x3 Assessment and Plan - Assessment and Plan (Free Text) Assessment: will hold antibiotics.id f/u.ct abdoman.,
[2018-09-19] MEDS: Piperacillin/Tazobact 3.375 GM in Sodium Chloride 100 ML IVPB SCH (12:40)
[2018-09-19] MEDS: Metoprolol Succinate 50 mg XL Tab PO SCH (15:00)
[2018-09-19] MEDS ORDERED: Iohexol 350mg/ml 100 ML ONE (17:15)
[2018-09-19] MEDS: Sodium Chloride 0.9% 1,000 ML IV SCH (18:27)
--- NOTE | 2018-09-19 21:00 | CP.PCM.PN ---
Subjective - Date & Time of Evaluation Date of Evaluation: 09/19/18 Time of Evaluation: 20:57 - Subjective Subjective: INFECTIOUS DISEASE PROGRESS NOTES EDINSON SALAZAR MD, FACP 09/19/2018 CHART REVIEWED PT EXAMINED CASE DISCUSSED AMAZINGLY NO VISIBLE RASH APPRECIATED THIS PM, REPORTED BY RN'S ONLLY ON HER BACK AND LEGS--NOT ON HER ARMS, HANDS OR CHEST, DUE TO FEVER AND LPASTIC BEDDING(?). OFF [facility] NOT DIAGNOSTIC RENAL W/U ON GOING/ . TO OBSERVE FOR NEXT TEMP AND OR TISSUE DIAGNOSIS. Objective - Vital Signs/Intake and Output Vital Signs (last 24 hours): Temp Pulse Resp BP Pulse Ox 97.2 F L 82 20 106/71 98 09/19/18 15:00 09/19/18 16:00 09/19/18 15:00 09/19/18 15:00 09/19/18 15:00 - Medications Medications: Current Medications Acetaminophen (Tylenol 325mg Tab) 975 mg PO ONCE PRN PRN Reason: Fever >100.4 F Last Admin: 09/18/18 03:36 Dose: 975 mg Acetaminophen (Tylenol 325mg Tab) 650 mg PO Q6 PRN PRN Reason: Pain, severe (8-10) Last Admin: 09/19/18 00:50 Dose: 650 mg Digoxin (Lanoxin) 0.25 mg PO MWF [facility] Piperacillin Sod/Tazobactam (Sod 3.375 gm/ Sodium Chloride) 100 mls @ 200 mls/hr IVPB Q8H [facility]; Protocol Last Admin: 09/19/18 12:40 Dose: Not Given Sodium Chloride (Sodium Chloride 0.9%) 1,000 mls @ 80 mls/hr IV .[id number] [facility] Last Admin: 09/19/18 18:27 Dose: 80 mls/hr Meropen[place] 1 gm/ Sodium (Chloride) 100 mls @ 100 mls/hr IVPB Q8H [facility]; Protocol Last Admin: 09/19/18 09:53 Dose: 100 mls/hr Insulin Human Regular (Novolin R) 0 unit SC ACHS [facility]; Protocol Last Admin: 09/19/18 17:19 Dose: Not Given Metformin HCl (Glucophage) 500 mg PO DAILY [facility] Last Admin: 09/19/18 09:50 Dose: 500 mg Metoprolol Succinate (Toprol Xl) 50 mg PO DAILY [facility] Last Admin: 09/19/18 15:00 Dose: 50 mg Pneumococcal Polyvalent Vaccine (Pneumovax 23 Vaccine) 0.5 ml IM .ONCE ONE Stop: 09/20/18 10:01 Rivaroxaban (Xarelto) 15 mg PO DAILY [facility] Last Admin: 09/19/18 09:50 Dose: 15 mg - Labs Labs: 09/19/18 08:21 09/19/18 08:21 PT 15.0 SECONDS (9.7-12.2) H 09/18/18 03:35 INR 1.4 09/18/18 03:35 APTT 27 SECONDS (21-34) 09/18/18 03:35
--- NOTE | 2018-09-20 03:44 | PN ---
DATE: 09/19/2018 FOLLOWUP RENAL CONSULTATION LOCATION: The patient is located room 662, bed B. REQUESTED BY: Kye Umana MD REASON FOR FOLLOWUP: Rule out sepsis and also large left renal cyst, rule out malignancy. HISTORY OF PRESENT ILLNESS: Mrs. Castillo is a 73-year-old very pleasant female with a past medical history significant for diabetes, hypertension, AFib, status post treatment for the UTI, coronary artery disease, status post stent placement, history of endoscopy in the past who was treated for the UTI about 2 to 3 weeks' ago by PMD, Dr. Kye Umana, was admitted with chief complaints of fever, chills, and diffuse generalized body aches, nausea, for the last 3 to 4 days prior to the admission and some chest discomfort prior to the admission. The patient is feeling much better today, not in acute distress. Denies any headache, dizziness. Denies any chest pain or palpitation. No nausea, no vomiting. The patient does complaint of rash on both lower extremities, and also on the back, macular erythematous. No swelling of the legs. No urinary symptoms. PHYSICAL EXAMINATION: VITAL SIGNS: As follows: Blood pressure 113/67, pulse about 80, respirations 20, temperature 97.2, saturation 98%. Height 5 feet, and weight is 105 pounds. GENERAL: Mrs. Castillo is a 73-year-old elderly female with hypertension, diabetes, moderately built, moderately nourished, not in acute distress. HEENT: Pupils normal and reactive to light and accommodation. Conjunctivae pink. Sclerae anicteric. Tongue is moist. Trachea is midline. LUNGS: Symmetric on both sides. Bilateral breath sounds present. Clear to auscultation. CARDIOVASCULAR SYSTEM: [place] at the fifth intercostal space midclavicular line. S1, S2 audible. No murmur or gallop. ABDOMEN: Normal in appearance. Soft, tympanitic. No guarding. No rigidity. No hepatosplenomegaly. CENTRAL NERVOUS SYSTEM: The patient is alert, awake, and oriented x3. Nonfocal neuro examination. Cranial nerves II through XII grossly intact. Sensory and motor system is within normal limits. EXTREMITIES: No cyanosis, no clubbing, no edema. SKIN: The patient has macular erythematous rash on the bilateral lower extremities and also on the back. CURRENT MEDICATIONS: Include as follows: Metformin 500 mg p.o. daily, digoxin 0.25 mg p.o. three times a week, meropenem on hold, Zosyn is also on hold, IV fluids normal saline at 80 mL/hour, metoprolol 50 mg p.o. daily, Tylenol and also Xarelto 15 mg p.o. daily. LABORATORY DATA: Include as follows: As of 09/19/2018, WBC 11.8, hemoglobin 11.8, hematocrit is 35.3, platelets 207. Sodium 135, potassium 4.3, chloride 107, CO2 of 25, BUN 13, creatinine 0.7, glucose 181. Calcium 7.7, phosphorus 2.5, magnesium 2.6, total bili 0.5, AST 25, ALT 23, alkaline phosphatase 61, total protein 5, and albumin is 2.7. Culture reports, blood culture x2 negative day one and urine culture is negative. IMPRESSION: In summary, Mrs. Castillo is a 73-year-old elderly female with a history of hypertension, diabetes, status post urinary tract infection, coronary artery disease, status post stents, and also was admitted with nausea, chest discomfort and weakness, and fever and found to have a large cyst in the left kidney with internal echoes recommending a CT scan with contrast. 1. Hypertension. 2. Large left renal cyst, rule out malignancy. 3. Diabetes. 4. Rule out sepsis versus rule out viral syndrome. All the blood culture, urine culture negative so far. We will continue to monitor. Her antibiotics are on hold for possible allergic reaction to drugs. We will request a CT scan with contrast. Discussed with the patient and the patient's daughter at bedside and also discussed with Dr. Kye Umana in rounds for better evaluation of the left renal cyst. Thank you for allowing me to participate in your patient's care. Repeat BMP in a.m. Continue IV fluids normal saline at 80 mL/hour. Yenny Baptiste MD
[2018-09-20] MEDS: Sodium Chloride 0.9% 1,000 ML IV SCH ×3 (05:43→19:39)
[2018-09-20 07:47] LABS: BASO # 0.1 K/uL (0.0-0.2); BASO % 0.9 % (0.0-2.0); EOS # 0.4 K/uL (0.0-0.7); EOS % 5.6 % (0.0-4.0); HEMOGLOBIN 11.7 g/dL (11.0-16.0); LYMPH # 1.7 K/uL (1.0-4.3); LYMPH % 27.3 % (20.0-40.0); MEAN CELL VOLUME 91.5 fL (81.0-99.0); MEAN CORPUSCULAR HEMOGLOBIN 32.1 pg (27.0-31.0); MEAN PLATELET VOLUME 9.1 fL (7.2-11.7); MONO # 0.3 K/uL (0.0-0.8); MONO % 4.6 % (0.0-10.0); NEUT # 3.9 K/uL (1.8-7.0); NEUT % 61.6 % (50.0-75.0); NRBC % 0.1 % (0.0-2.0); RBC 3.64 Mil/uL (3.80-5.20); RED CELL DISTRIBUTION WIDTH 13.5 % (11.5-14.5); WHITE BLOOD COUNT 6.4 K/uL (4.8-10.8)
[2018-09-20] MEDS: (Novolin R) Insulin Human Regular 100 units/ml vial SC SCH ×4 (08:15→22:17)
[2018-09-20] MEDS ORDERED: Digoxin 250 mcg (0.25 mg) Tab PO SCH (09:00)
[2018-09-20] MEDS ORDERED: Pneumococcal 23-Valent Vaccine IM ONE (10:00)
[2018-09-20] MEDS ORDERED: Potassium & Sodium Phosphate PO ONE (10:00)
--- NOTE | 2018-09-20 10:04 | CP.PCM.PN ---
Subjective - Date & Time of Evaluation Date of Evaluation: 09/20/18 Time of Evaluation: 10:03 - Subjective Subjective: better.no fever.await ct results Objective - Vital Signs/Intake and Output Vital Signs (last 24 hours): Temp Pulse Resp BP Pulse Ox 97.8 F 96 H 20 118/72 97 09/20/18 07:05 09/20/18 07:46 09/20/18 07:05 09/20/18 07:05 09/20/18 07:05 Intake and Output: 09/20/18 09/20/18 06:59 18:59 Intake Total 1280 Balance 1280 - Medications Medications: Current Medications Acetaminophen (Tylenol 325mg Tab) 975 mg PO ONCE PRN PRN Reason: Fever >100.4 F Last Admin: 09/18/18 03:36 Dose: 975 mg Acetaminophen (Tylenol 325mg Tab) 650 mg PO Q6 PRN PRN Reason: Pain, severe (8-10) Last Admin: 09/19/18 00:50 Dose: 650 mg Digoxin (Lanoxin) 0.25 mg PO MWF [facility] Piperacillin Sod/Tazobactam (Sod 3.375 gm/ Sodium Chloride) 100 mls @ 200 mls/hr IVPB Q8H [facility]; Protocol Last Admin: 09/19/18 12:40 Dose: Not Given Sodium Chloride (Sodium Chloride 0.9%) 1,000 mls @ 80 mls/hr IV .[id number] [facility] Last Admin: 09/20/18 07:10 Dose: Not Given Meropenem 1 gm/ Sodium (Chloride) 100 mls @ 100 mls/hr IVPB Q8H [facility]; Protocol Last Admin: 09/19/18 09:53 Dose: 100 mls/hr Insulin Human Regular (Novolin R) 0 unit SC ACHS [facility]; Protocol Last Admin: 09/20/18 08:15 Dose: Not Given Metformin HCl (Glucophage) 500 mg PO DAILY [facility] Last Admin: 09/19/18 09:50 Dose: 500 mg Metoprolol Succinate (Toprol Xl) 50 mg PO DAILY [facility] Last Admin: 09/19/18 15:00 Dose: 50 mg Potassium Phos/Sodium Phos (Neutra-Phos) 1 pkt PO ONCE ONE Stop: 09/20/18 10:01 Rivaroxaban (Xarelto) 15 mg PO DAILY [facility] Last Admin: 09/19/18 09:50 Dose: 15 mg - Labs Labs: 09/20/18 07:30 09/19/18 08:21 PT 15.0 SECONDS (9.7-12.2) H 09/18/18 03:35 INR 1.4 09/18/18 03:35 APTT 27 SECONDS (21-34) 09/18/18 03:35 - Constitutional Appears: No Acute Distress - Head Exam Head Exam: NORMOCEPHALIC - Neck Exam Neck Exam: Normal Inspection - Respiratory Exam Respiratory Exam: Clear to Ausculation Bilateral - Cardiovascular Exam Cardiovascular Exam: Irregular Rhythm, Murmur - GI/Abdominal Exam GI & Abdominal Exam: Soft - Extremities Exam Extremities Exam: absent: Pedal Edema - Neurological Exam Neurological Exam: Alert, Oriented x3 Assessment and Plan - Assessment and Plan (Free Text) Plan: doing better.cpm.
[2018-09-20] MEDS: Metoprolol Succinate 50 mg XL Tab PO SCH (10:07)
[2018-09-20 10:08] VITALS: PULSE 86
--- NOTE | 2018-09-20 10:20 | CT ---
Date of service: 09/19/2018 PROCEDURE: CT Abdomen without intravenous contrast HISTORY: for evaluation of cyst, r/o mass COMPARISON: 05/21/2014. TECHNIQUE: Axial images of the abdomen from lung bases to iliac crest after intravenous contrast enhancement. Coronal and sagittal reformats generated. Oral contrast was not administered. Radiation dose: Total exam DLP = 231.58 mGy-cm. This CT exam was performed using one or more of the following dose reduction techniques: Automated exposure control, adjustment of the mA and/or kV according to patient size, and/or use of iterative reconstruction technique. FINDINGS: LOWER THORAX: Bilateral small pleural effusions. LIVER: Normal in size with homogeneous enhancement. No gross lesion or ductal dilatation. GALLBLADDER AND BILE DUCTS: The gallbladder is contracted. PANCREAS: Normal in size with homogeneous enhancement. Mild diffuse atrophy of the pancreas. No gross lesion or ductal dilatation. SPLEEN: Normal in size with homogeneous enhancement. ADRENALS: Normal in size. No mass. KIDNEYS AND URETERS: Normal in size with homogeneous enhancement. No hydronephrosis. No solid mass. There is interval mild decrease in size of 6.7 x 4.6 x 5.8 cm simple cyst in the upper pole of the left kidney which previously measured 7.1 x 5.7 x 5.3 cm. VASCULATURE: Unremarkable. No aortic aneurysm. No aortic atherosclerotic calcification or mural plaque present. BOWEL: There is mild mural thickening in the gastric pylorus and 1st portion of the duodenum which could be related to underdistention or nonspecific gastritis. The small bowel loops are normal in caliber. There is fluid in the colon. PERITONEUM: Unremarkable as visualized. No free fluid. No free air. LYMPH NODES: No enlarged lymph nodes. BONES: No acute fracture. OTHER FINDINGS: None. IMPRESSION: 1. Interval mild decrease in size of 6.7 x 4.6 x 5.8 cm simple cyst in the pole of the left kidney. 2. The gallbladder is contracted. 3. Small bilateral pleural effusions. A preliminary report was provided by [email or web address].
--- NOTE | 2018-09-20 13:12 | CP.PCM.PN ---
Subjective - Date & Time of Evaluation Date of Evaluation: 09/20/18 Time of Evaluation: 13:12 - Subjective Subjective: pt is seen and examined, follow up consult is dictated #[id number] will sign off the case Objective - Vital Signs/Intake and Output Vital Signs (last 24 hours): Temp Pulse Resp BP Pulse Ox 97.8 F 96 H 20 118/72 97 09/20/18 07:05 09/20/18 07:46 09/20/18 07:05 09/20/18 07:05 09/20/18 07:05 Intake and Output: 09/20/18 09/20/18 06:59 18:59 Intake Total 1280 Balance 1280 - Medications Medications: Current Medications Acetaminophen (Tylenol 325mg Tab) 975 mg PO ONCE PRN PRN Reason: Fever >100.4 F Last Admin: 09/18/18 03:36 Dose: 975 mg Acetaminophen (Tylenol 325mg Tab) 650 mg PO Q6 PRN PRN Reason: Pain, severe (8-10) Last Admin: 09/19/18 00:50 Dose: 650 mg Digoxin (Lanoxin) 0.25 mg PO MWF [facility] Last Admin: 09/20/18 10:00 Dose: 0.25 mg Piperacillin Sod/Tazobactam (Sod 3.375 gm/ Sodium Chloride) 100 mls @ 200 mls/hr IVPB Q8H [facility]; Protocol Last Admin: 09/19/18 12:40 Dose: Not Given Sodium Chloride (Sodium Chloride 0.9%) 1,000 mls @ 80 mls/hr IV .[id number] [facility] Last Admin: 09/20/18 07:10 Dose: Not Given Meropenem 1 gm/ Sodium (Chloride) 100 mls @ 100 mls/hr IVPB Q8H [facility]; Protocol Last Admin: 09/19/18 09:53 Dose: 100 mls/hr Insulin Human Regular (Novolin R) 0 unit SC ACHS [facility]; Protocol Last Admin: 09/20/18 11:58 Dose: Not Given Metformin HCl (Glucophage) 500 mg PO DAILY [facility] Last Admin: 09/20/18 10:07 Dose: 500 mg Metoprolol Succinate (Toprol Xl) 50 mg PO DAILY [facility] Last Admin: 09/20/18 10:07 Dose: 50 mg Rivaroxaban (Xarelto) 15 mg PO DAILY [facility] Last Admin: 09/20/18 10:08 Dose: 15 mg - Labs Labs: 09/20/18 07:30 09/19/18 08:21 PT 15.0 SECONDS (9.7-12.2) H 09/18/18 03:35 INR 1.4 09/18/18 03:35 APTT 27 SECONDS (21-34) 09/18/18 03:35
--- NOTE | 2018-09-20 17:55 | CP.PCM.PN ---
Subjective - Date & Time of Evaluation Date of Evaluation: 09/20/18 Time of Evaluation: 17:52 - Subjective Subjective: INFECTIOUS DISEASE PROGRESS NOTES EDINSON SALAZAR MD, FACP 09/20/2018 CHART REVIEWED PT EXAMINED AFEBRILE SINCE SUNDAY NIGHT, OFF AB 2ND POSSIBLE RASH(?), NON APPRECIATED BY ME ON THE NEXT DAY. NL WBC, NO + C/S, AND IT APPEARS THAT THERE IS A SIMPLE KIDNEY CYCT(?) RECALL NEEDED. THANK YOU FOR ALLOWING TO HELP IN THE MANAGEMENT OF THIS PATIENT. Objective - Vital Signs/Intake and Output Vital Signs (last 24 hours): Temp Pulse Resp BP Pulse Ox 97.8 F 63 20 118/72 97 09/20/18 07:05 09/20/18 16:20 09/20/18 07:05 09/20/18 07:05 09/20/18 07:05 Intake and Output: 09/20/18 09/20/18 06:59 18:59 Intake Total 1280 Balance 1280 - Medications Medications: Current Medications Acetaminophen (Tylenol 325mg Tab) 975 mg PO ONCE PRN PRN Reason: Fever >100.4 F Last Admin: 09/18/18 03:36 Dose: 975 mg Acetaminophen (Tylenol 325mg Tab) 650 mg PO Q6 PRN PRN Reason: Pain, severe (8-10) Last Admin: 09/19/18 00:50 Dose: 650 mg Digoxin (Lanoxin) 0.25 mg PO MWF [facility] Last Admin: 09/20/18 10:00 Dose: 0.25 mg Piperacillin Sod/Tazobactam (Sod 3.375 gm/ Sodium Chloride) 100 mls @ 200 mls/hr IVPB Q8H [facility]; Protocol Last Admin: 09/19/18 12:40 Dose: Not Given Sodium Chloride (Sodium Chloride 0.9%) 1,000 mls @ 80 mls/hr IV .[id number] [facility] Last Admin: 09/20/18 07:10 Dose: Not Given Meropenem 1 gm/ Sodium (Chloride) 100 mls @ 100 mls/hr IVPB Q8H [facility]; Protocol Last Admin: 09/19/18 09:53 Dose: 100 mls/hr Insulin Human Regular (Novolin R) 0 unit SC ACHS [facility]; Protocol Last Admin: 09/20/18 17:10 Dose: Not Given Metformin HCl (Glucophage) 500 mg PO DAILY [facility] Last Admin: 09/20/18 10:07 Dose: 500 mg Metoprolol Succinate (Toprol Xl) 50 mg PO DAILY [facility] Last Admin: 09/20/18 10:07 Dose: 50 mg Rivaroxaban (Xarelto) 15 mg PO DAILY [facility] Last Admin: 09/20/18 10:08 Dose: 15 mg - Labs Labs: 09/20/18 07:30 09/19/18 08:21 PT 15.0 SECONDS (9.7-12.2) H 09/18/18 03:35 INR 1.4 09/18/18 03:35 APTT 27 SECONDS (21-34) 09/18/18 03:35
--- NOTE | 2018-09-21 04:00 | PN ---
DATE: 09/20/2018 FOLLOWUP RENAL CONSULTATION LOCATION: The patient is located in room 662, bed B. REQUESTED BY: Kye Umana MD REASON FOR FOLLOWUP: Large left renal cyst, rule out mass, rule out malignancy. SUBJECTIVE: Mrs. Castillo is a 73-year-old elderly female, with a history of longstanding hypertension, diabetes, coronary artery disease, status post stent placement, atrial fibrillation, on anticoagulation, status post treatment for UTI about 2-[address] Umana, who was admitted with chief complaints of weakness, fever, and dizziness and the patient is being treated for possible sepsis. The patient was initially started on Zosyn and meropenem and subsequently, the patient developed skin rash and which were on hold. A renal consult request initially for evaluation of the large left renal cyst with internal echoes to rule out malignancy. The patient is not in distress. Denies any headache, dizziness. Denies any chest pain or palpitation. Denies any fever or cough. No abdominal pain. No nausea, vomiting, diarrhea. The patient claims her skin rash is improving, antibiotics are on hold. PHYSICAL EXAMINATION: VITAL SIGNS: This morning as follows: Blood pressure 118/72, pulse 63, respirations 20, temperature 97.8, saturation 97%. Height 5 feet, weight is 104 pounds. GENERAL: Mrs. Castillo is a 73-year-old elderly female, moderately built, moderately nourished, not in acute distress. HEENT: Pupils normal, reactive to light and accommodation. Conjunctivae pink. Sclerae anicteric. Tongue is moist and trachea is midline. LUNGS: Symmetric on both sides. Bilateral breath sounds present. Clear to auscultation. CVS: [place] at the fifth intercostal space, midclavicular line. S1, S2 audible. No murmur or gallop. ABDOMEN: Normal in appearance. Soft, tympanitic. No guarding. No rigidity. No hepatosplenomegaly. [employer] PASTRY: The patient is alert, awake and oriented x3. Nonfocal neuro examination. Cranial nerves II-XII grossly intact. Sensory and motor system is within normal limits. EXTREMITIES: No cyanosis, no clubbing, no edema. CURRENT MEDICATIONS: Include as follows, metformin 500 mg p.o. daily, digoxin 0.25 mg p.o. three times a week, IV fluids normal saline at 80 mL/hour, Toprol-XL 50 mg p.o. daily, Tylenol and Xarelto 15 mg p.o. daily. LABORATORY DATA: Include as follows as of 09/20/2018, WBC 6.4, hemoglobin 11.7, hematocrit is 33.3, platelets are 226. Phosphorus 2.4 and magnesium is 1.8. Accu-Cheks 108 and 114. Other laboratory data, blood culture x2 negative as of 09/18/2018. Urine culture is negative as of 09/18/2018. Blood culture repeat x1 as of 09/19/2018 is negative times day one. Other reports, CT scan of the abdomen; impression, interval mild decrease in size 6.7 x 4.6 x 5.8 cm simple cyst in the pole of the left kidney, gallbladder is contracted, small bilateral pleural effusions. Preliminary report was provided by the [facility] radiology service. ASSESSMENT AND PLAN: In summary, Mrs. Castillo is a 73-year-old elderly female with history of hypertension, diabetes, coronary artery disease, status post questionable stent placement and atrial fibrillation, on Xarelto, who was admitted with fever, chills and weakness and being treated for possible sepsis, meropenem and Zosyn both are on hold since yesterday due to skin rash, status post CAT scan consistent with a simple cyst. 1. Left renal cyst, status post a CAT scan consistent with a simple cyst, no further workup is needed at this time. 2. Hypertension. Continue her current antihypertensive medication, metoprolol XL 50 mg p.o. daily, continue IV fluids. 3. Type 2 diabetes. Continue metformin. 4. Atrial fibrillation. Continue digoxin and also Xarelto. No further workup is needed from the renal standpoint. We will sign off the case. Thank you for allowing me to participate in your patient's care. Recheck BMP in the morning. Yenny Baptiste MD
[2018-09-21] MEDS: Sodium Chloride 0.9% 1,000 ML IV SCH ×2 (06:09→08:00)
[2018-09-21] MEDS: (Novolin R) Insulin Human Regular 100 units/ml vial SC SCH ×2 (07:25→11:45)
[2018-09-21 07:57] LABS: BASO # 0.1 K/uL (0.0-0.2); BASO % 1.1 % (0.0-2.0); EOS # 0.3 K/uL (0.0-0.7); EOS % 5.5 % (0.0-4.0); HEMOGLOBIN 12.6 g/dL (11.0-16.0); LYMPH # 2.1 K/uL (1.0-4.3); LYMPH % 39.8 % (20.0-40.0); MEAN CELL VOLUME 91.5 fL (81.0-99.0); MEAN CORPUSCULAR HEMOGLOBIN 31.7 pg (27.0-31.0); MEAN CORPUSCULAR HGB CONC 34.6 g/dL (33.0-37.0); MEAN PLATELET VOLUME 9.9 fL (7.2-11.7); MONO # 0.3 K/uL (0.0-0.8); MONO % 5.2 % (0.0-10.0); NEUT # 2.6 K/uL (1.8-7.0); NEUT % 48.4 % (50.0-75.0); NRBC % 0.1 % (0.0-2.0); RBC 3.97 Mil/uL (3.80-5.20); RED CELL DISTRIBUTION WIDTH 13.7 % (11.5-14.5); WHITE BLOOD COUNT 5.3 K/uL (4.8-10.8)
[2018-09-21 08:16] LABS: BLOOD UREA NITROGEN 9 mg/dL (7-17); CALCIUM 9.2 mg/dl (8.6-10.4); GFR NON-AFRICAN AMERICAN > 60
[2018-09-21 08:27] VITALS: RESP 18; TEMP 97.8
[2018-09-21] MEDS: Metoprolol Succinate 50 mg XL Tab PO SCH (09:44)
[2018-09-21 09:46] VITALS: BP 122/81; PULSE 84; O2SAT 97
--- NOTE | 2018-09-22 14:30 | DS ---
HISTORY OF PRESENT ILLNESS: A 73-year-old female who was brought in with fever, nausea, and possibility of UTI was suspected. She was admitted to telemetry floor. She has a chronic AFib. She was treated with a beta emerita, digoxin, that she has been at home along with IV antibiotics. She has improved. All her cultures including urine and blood cultures all have been negative. CT of the abdomen showed renal cyst. Nephrology consult was obtained with Dr. Baptiste. PHYSICAL EXAMINATION: GENERAL: She has remained afebrile. VITAL SIGNS: Good. LABORATORY DATA: White count is 5.3. Routine labs are acceptable. ASSESSMENT AND PLAN: At this point, she will be discharged to be followed up as an outpatient. No antibiotics to be given at the time of discharge. I will see her back in a week's time. Care of plan was explained to the patient and her who was at the bedside. FINAL DIAGNOSES: Possible urinary tract infection, atrial fibrillation, hypertension, diabetes. Kye Umana MD
== END 2018-09-21 14:10 | disposition home or self-care (01) | DRG 690 ==
LOC: C.ER 02:44 → C.6T 04:33
PROVIDERS: ADMIT Internal Medicine Cardiovascular Disease; ATTEND Internal Medicine Cardiovascular Disease
DX: N39.0 Urinary tract infection, site not specified (principal); N28.1 Cyst of kidney, acquired; I48.2 Chronic atrial fibrillation; I10 Essential (primary) hypertension; I25.10 Atherosclerotic heart disease of native coronary artery without angina pectoris; E11.9 Type 2 diabetes mellitus without complications; Z79.01 Long term (current) use of anticoagulants; Z95.5 Presence of coronary angioplasty implant and graft; Z87.440 Personal history of urinary (tract) infections; Z79.84 Long term (current) use of oral hypoglycemic drugs